=== PATIENT | female | born 2000 | race Caucasian/White ===

== ENCOUNTER 2024-10-20 10:28 | Outpatient (REF) | payer BC, SELFPAY ==
--- NOTE | ~2024-10-20 | US_ITS ---
EXAMINATION: US PELVIS CLINICAL INFORMATION: Right lower quadrant pain, nausea and vomiting. Rule out ovarian cyst. COMPARISON: None available. TECHNIQUE: Ultrasound of the pelvis is performed using both transabdominal and transvaginal transducers along with Doppler. Transvaginal imaging is performed due to inadequate visualization transabdominally. FINDINGS: Uterus: Surgically absent. Adnexa: Both ovaries are visualized. There is normal color flow to the adnexa. There is no ovarian torsion. There is no pelvic ascites or fluid collection. There are no adnexal masses. Right ovary measures 2.7 x 2.5 x 2.0 cm. Volume = 7.1 mL. Normal sonographic appearance. Left ovary measures 2.7 x 2.6 x 2.1 cm. Volume = 7.7 mL. Normal sonographic appearance. US/US pelvic and transvaginal IMPRESSION: 1. Hysterectomy. 2. Normal ovaries bilaterally. 3. No free fluid or adnexal mass. Electronically signed by: Willi Zapata MD 10/20/2024 11:59 AM [facility]
== END 2024-10-20 10:29 | disposition home or self-care (01) ==
LOC: HO.UMASIMG 10:28
PROVIDERS: Visit Provider Emergency Medicine
DX: R10.9 Unspecified abdominal pain (principal)
CPT/HCPCS: 76830; 76856

== ENCOUNTER → 2024-10-20 10:31 | Outpatient (BNV) | payer BC, SELFPAY | PROVIDERS: Visit Provider Radiology Diagnostic Radiology | DX: R10.9 Unspecified abdominal pain (principal) | CPT/HCPCS: 76830; 76856 ==